=== PATIENT | female | born 1995 | race African-American/Black ===

== ENCOUNTER 2016-12-25 02:03 | Inpatient (IN) | payer MEDICAID, OTHER ==
[~2016-12-25] VITALS: Ht 162.6 cm; Wt 57.2 kg
[2016-12-25] MEDS: LACTATED RINGERS 1,000 ML IV SCH ×2 (03:29→18:28)
[2016-12-25] MEDS ORDERED: DEXT 5%/LR + PITOCIN 20UNITS/L 1,000 ML IV SCH ×2 (03:29→06:24)
[2016-12-25] MEDS ORDERED: NALOXONE HCL 0.4 MG/ML 1ML VIAL IM PRN (03:30)
[2016-12-25] MEDS ORDERED: METHYLERGONOVINE MALEATE 0.2 MG/ML IM PRN (03:30)
[2016-12-25] MEDS ORDERED: PNV1TABL76 PO (03:47)
[2016-12-25] MEDS ORDERED: IRON-1 PO (03:47)
[2016-12-25 04:06] LABS: BASOPHILS % 0.3 % (0.0-2.0); EOSINOPHILS % 0.3 % (0.0-5.0); HEMATOCRIT. 32.9 % (36.0-48.0); HEMOGLOBIN. 11.2 g/dL (12.0-16.0); LYMPHOCYTES % 26.5 % (20.0-50.0); MEAN CORPUSCULAR HEMOGLOBIN 30.9 pg (28.0-32.0); MEAN CORPUSCULAR VOLUME 90.6 fL (81.0-99.0); MEAN PLATELET VOLUME 9.2 fl (7.4-10.4); MONOCYTES % 13.8 % (2.0-8.0); NEUTROPHILS % 59.1 % (40.0-76.0); PLATELET 181 x1000/uL (130-400); RED BLOOD CELL COUNT 3.63 mill/uL (4.2-5.4); RED CELL DISTRIBUTION WIDTH 12.9 % (11.6-14.6)
[2016-12-25] MEDS ORDERED: FENTANYL CITRATE/PF 50MCG/ML 2ML VIAL ONE (04:07)
[2016-12-25 04:10] LABS: PARTIAL THROMBOPLASTIN TIME 36.4 sec (23.4-31.0); PROTHROMBIN TIME 10.1 sec (9.4-11.6)
[2016-12-25] MEDS ORDERED: OXYTOCIN 10 UNITS/ML 1ML ONE (04:15)
[2016-12-25] MEDS ORDERED: CEFAZOLIN 2000MG PREMIX 50 ML IV ONE (04:15)
[2016-12-25] MEDS ORDERED: MORPHINE SULFATE/PF 1MG/ML 10ML AMP ONE (04:32)
[2016-12-25] MEDS ORDERED: GLYCOPYRROLATE 0.2 MG/ML 2ML VIAL ONE (04:54)
[2016-12-25] MEDS ORDERED: ONDANSETRON HCL 4MG/2ML VIAL ONE (04:57)
[2016-12-25] MEDS ORDERED: EPHEDRINE SULFATE 50MG/ML VIAL ONE (04:58)
[2016-12-25] MEDS ORDERED: NALOXONE HCL 0.4 MG/ML 1ML VIAL IV PRN (06:00)
[2016-12-25] MEDS ORDERED: BUTORPHANOL TARTRATE 2 MG/ML VIAL IV PRN (06:00)
[2016-12-25] MEDS ORDERED: DIPHENHYDRAMINE 50MG/ML VIAL IV PRN (06:00)
[2016-12-25] MEDS ORDERED: LANOLIN OINT 0.25 GM TUBE TOP PRN (06:30)
[2016-12-25] MEDS ORDERED: HYDROCODONE/ACETAMINOPHEN 5/325MG TABLET PO PRN (06:30)
[2016-12-25] MEDS ORDERED: IBUPROFEN 400MG TABLET PO PRN (06:30)
[2016-12-25] MEDS ORDERED: ONDANSETRON HCL 4MG/2ML VIAL IV PRN (06:30)
[2016-12-25] MEDS ORDERED: RHO(D) IMMUNE GLOBULIN 300 MCG/SYR IM PRN (06:30)
[2016-12-25] MEDS ORDERED: FENTANYL CITRATE/PF 50MCG/ML 2ML VIAL IV PRN (07:00)
[2016-12-25] MEDS: KETOROLAC 30MG/ML VIAL IV PRN ×3 (07:00→18:27)
[2016-12-25] MEDS ORDERED: HYDROMORPHONE HCL/PF 2MG/ML CPJ IV PRN (07:00)
[2016-12-25 07:54] LABS: HEPATITIS B SURFACE ANTIGEN NEGATIVE; RUBELLA IGG 4.6 IU/mL (4.99-10)
[2016-12-25 08:10] VITALS: BP 113/76
[2016-12-25 08:28] VITALS: BP 115/73
[2016-12-25] MEDS ORDERED: INFLUENZA VIRUS VACCINE 0.5ML SYR IM ONE (09:30)
[2016-12-25 13:04] LABS: CLARITY URINE CLEAR (CLEAR); COLOR URINE YELLOW (YELLOW); GLUCOSE URINE NEGATIVE (NEGATIVE); KETONES URINE NEGATIVE (NEGATIVE); LEUKOCYTE ESTERASE URINE TRACE (NEGATIVE); NITRITE URINE NEGATIVE (NEGATIVE); OCCULT BLOOD URINE 1+ (NEGATIVE); PROTEIN URINE NEGATIVE (NEGATIVE); SPECIFIC GRAVITY URINE 1.014 (1.005-1.030); UROBILINOGEN URINE 0.2 E.U./dL (0.2-1.0)
[2016-12-25] MEDS ORDERED: PNEUMOCOCCAL 23-VAL P-SAC VAC 0.5 ML IM ONE (13:30)
[2016-12-25 13:39] LABS: *BARBITURATES SCREEN URINE NEGATIVE (NEGATIVE); *BENZODIAZEPINES SCREEN URINE NEGATIVE (NEGATIVE); *COCAINE SCREEN URINE NEGATIVE (NEGATIVE); CANNABINOID URINE SCREEN NEGATIVE (NEGATIVE); METHADONE URINE SCREEN NEGATIVE (NEGATIVE); OPIATES URINE SCREEN NEGATIVE (NEGATIVE); PHENCYCLIDINE URINE SCREEN NEGATIVE (NEGATIVE)
[2016-12-25 13:51] LABS: *AMPHETAMINES SCREEN URINE NEGATIVE (NEGATIVE)
[2016-12-25 16:29] VITALS: BP 99/70
[2016-12-25 20:00] VITALS: BP 106/72
[2016-12-26] VITALS: BP 109/64
[2016-12-26] MEDS: DOCUSATE SODIUM 100MG CAPSULE PO SCH ×2 (00:08→21:14)
[2016-12-26] MEDS: KETOROLAC 30MG/ML VIAL IV PRN (00:09)
[2016-12-26 06:14] VITALS: BP 108/61
[2016-12-26] MEDS: IBUPROFEN 800MG TABLET PO PRN ×3 (06:14→21:15)
[2016-12-26 07:04] LABS: BASOPHILS % 0.1 % (0.0-2.0); EOSINOPHILS % 0.2 % (0.0-5.0); HEMATOCRIT. 31.9 % (36.0-48.0); HEMOGLOBIN. 10.7 g/dL (12.0-16.0); LYMPHOCYTES % 8.4 % (20.0-50.0); MEAN CORPUSCULAR HEMOGLOBIN 30.6 pg (28.0-32.0); MEAN CORPUSCULAR VOLUME 91.4 fL (81.0-99.0); MEAN PLATELET VOLUME 9.7 fl (7.4-10.4); MONOCYTES % 8.8 % (2.0-8.0); NEUTROPHILS % 82.5 % (40.0-76.0); PLATELET 164 x1000/uL (130-400); RED BLOOD CELL COUNT 3.49 mill/uL (4.2-5.4); RED CELL DISTRIBUTION WIDTH 12.9 % (11.6-14.6)
[2016-12-26 07:27] VITALS: BP 101/62
[2016-12-26] MEDS: PRENATAL VIT/FE FUMARATE/FA TABLET PO SCH (09:13)
[2016-12-26] MEDS: HYDROCODONE/ACETAMINOPHEN 5/325MG TABLET PO PRN (09:17)
[2016-12-26 14:59] VITALS: BP 112/69
[2016-12-26] MEDS ORDERED: MEASLES,MUMPS&RUBELLA VACCINE 1 VIAL SUBCUT ONE (17:00)
[2016-12-26 20:00] VITALS: BP 121/81
[2016-12-27] VITALS: BP 114/71
[2016-12-27 04:00] VITALS: BP 122/78
[2016-12-27 07:42] VITALS: BP 119/80
[2016-12-27] MEDS: PRENATAL VIT/FE FUMARATE/FA TABLET PO SCH (07:55)
[2016-12-27] MEDS: IBUPROFEN 800MG TABLET PO PRN ×2 (07:55→15:05)
[2016-12-27] MEDS ORDERED: MEDROXYPROGESTERONE ACETATE 150MG/ML VIAL IM SCH (10:00)
[2016-12-27 16:05] VITALS: BP 107/73
[2016-12-27 20:00] VITALS: BP 94/67
[2016-12-27] MEDS: HYDROCODONE/ACETAMINOPHEN 5/325MG TABLET PO PRN (20:40)
[2016-12-27] MEDS: DOCUSATE SODIUM 100MG CAPSULE PO SCH (20:40)
[2016-12-28 05:20] VITALS: BP 113/75
[2016-12-28 07:40] VITALS: BP 144/88
[2016-12-28] MEDS: HYDROCODONE/ACETAMINOPHEN 5/325MG TABLET PO PRN (08:09)
[2016-12-28] MEDS: PRENATAL VIT/FE FUMARATE/FA TABLET PO SCH (08:09)
[2016-12-28] MEDS ORDERED: INFLUENZA VIRUS VACCINE 0.5ML SYR IM ONE (10:00)
[2016-12-28] MEDS ORDERED: TETANUS, DIPHTHERIA, PERTUSSIS VAC/PF 0.5ML (>7YR OLD) IM ONE (10:00)
[2016-12-28 11:20] VITALS: BP 113/75
[2016-12-28] MEDS: IBUPROFEN 800MG TABLET PO PRN (11:20)
== END 2016-12-28 11:25 | disposition home or self-care (01) | DRG 540 ==
LOC: L&D 02:03 → OBSVTOIN 02:03 → 7EST PP/OB 07:38
PROVIDERS: ADMIT Obstetrics & Gynecology; ATTEND Obstetrics & Gynecology
PROC: 10D00Z1 Extraction of Products of Conception, Low, Open Approach (ICD-10-PCS; principal; 2016-12-25 04:45)
DX: O76 Abnormality in fetal heart rate and rhythm complicating labor and delivery (principal); D64.9 Anemia, unspecified; O99.02 Anemia complicating childbirth; Z3A.38 38 weeks gestation of pregnancy; Z37.0 Single live birth
CPT/HCPCS: 36415; 80305; 81001; 85025; 85610; 85730; 86592; 86703; 86762; 86850; 86900; 87340; 88307; 90686; 90707; 90715; J0171; J0690; J1050; J1885; J2274; J2405; J2590; J3010; J3490; J7120

== ENCOUNTER 2018-01-12 13:37 | Emergency (ER) | payer OTHER ==
[~2018-01-12 13:37] MED LIST: IRON-1 PO; PNV1TABL76 PO
== END 2018-01-12 14:27 | disposition left against medical advice (07) ==
LOC: ER 14:24
DX: Z53.21 Procedure and treatment not carried out due to patient leaving prior to being seen by health care provider (principal)

== ENCOUNTER 2018-08-29 16:48 | Emergency (ER) | payer OTHER ==
[~2018-08-29] VITALS: Ht 162.6 cm; Wt 65.0 kg
[2018-08-29] MEDS ORDERED: ONDANSETRON HCL 4MG/2ML INJ IV STA (21:45)
[2018-08-29] MEDS ORDERED: SODIUM CHLORIDE 0.9% 1,000 ML IV ONE (21:45)
[2018-08-29 22:42] LABS: BASOPHILS % 0.1 % (0.0-2.0); EOSINOPHILS % 0.3 % (0.0-5.0); HEMOGLOBIN. 13.4 g/dL (12.0-16.0); MEAN CORPUSCULAR HEMOGLOBIN 30.6 pg (28.0-32.0); MEAN CORPUSCULAR VOLUME 91.2 fL (81.0-99.0); MEAN PLATELET VOLUME 9.2 fl (7.4-10.4); MONOCYTES % 4.9 % (2.0-8.0); NEUTROPHILS % 86.7 % (40.0-76.0); PLATELET 228 x1000/uL (130-400); RED BLOOD CELL COUNT 4.39 mill/uL (4.2-5.4); RED CELL DISTRIBUTION WIDTH 14.1 % (11.6-14.6)
[2018-08-29 22:43] LABS: CLARITY URINE CLEAR (CLEAR); COLOR URINE YELLOW (YELLOW); KETONES URINE 3+ (NEGATIVE); LEUKOCYTE ESTERASE URINE 1+ (NEGATIVE); NITRITE URINE NEGATIVE (NEGATIVE); OCCULT BLOOD URINE 1+ (NEGATIVE); PH URINE 5.5 (4.5-8.0); PROTEIN URINE NEGATIVE (NEGATIVE); SPECIFIC GRAVITY URINE 1.019 (1.005-1.030); UROBILINOGEN URINE 0.2 E.U./dL (0.2-1.0)
[2018-08-29 22:44] LABS: CHLORIDE 106 mEq/L (98-107)
[2018-08-29] MEDS ORDERED: CEFTRIAXONE 1 G PREMIX 50 ML IV ONE (23:15)
[2018-08-29 23:59] VITALS: BP 111/75
== END 2018-08-29 23:59 | disposition home or self-care (01) ==
LOC: ER 18:53
DX: N30.00 Acute cystitis without hematuria (principal)
CPT/HCPCS: 36415; 80053; 81003; 81025; 85025; 96361; 96365; 96375; 99283; J0696; J2405; J7030; Z7610

== ENCOUNTER 2022-02-21 18:43 | Emergency (ER) | payer OTHER ==
[~2022-02-21] VITALS: Ht 162.6 cm; Wt 53.0 kg
[2022-02-21] MEDS ORDERED: ISOP30DR11 EACH EAR (22:10)
[2022-02-21 22:37] VITALS: BP 114/64
== END 2022-02-21 22:39 | disposition home or self-care (01) ==
LOC: ER 18:43
DX: H61.23 Impacted cerumen, bilateral (principal)
CPT/HCPCS: 99281; 99282